=== PATIENT | male | born 1990 | race Two or more races ===

== ENCOUNTER 2018-06-26 15:37 | Emergency (ER) | payer BC, OTHER ==
[~2018-06-26] VITALS: Ht 165.1 cm; Wt 74.8 kg
--- NOTE | 2018-06-26 16:23 | NUR ---
PATIENT TO ED DT UPPER LIP SP BIT BY A DOG. LIP NOTED WITH BLEEDING--VSS
[2018-06-26] MEDS ORDERED: TDAP [DIPH/PERTUSSIS/TET] 0.5 ML VIAL IM ONE ×2 (16:30→16:39)
[2018-06-26] MEDS ORDERED: LIDOCAINE 1% INJ 50 ML MDV IJ ONE (16:30)
[2018-06-26] MEDS ORDERED: ACETAMINOPHEN ES 500 MG TABLET PO ONE (16:30)
[2018-06-26] MEDS ORDERED: ACETAMINOPHEN ES 500 MG TABLET ONE (16:37)
[2018-06-26 17:13] VITALS: BP 130/80
== END 2018-06-26 17:15 | disposition home or self-care (01) ==
LOC: ER 15:54
DX: S01.511A Laceration without foreign body of lip, initial encounter (principal); W54.0XXA Bitten by dog, initial encounter; Y93.89 Activity, other specified; Y92.89 Other specified places as the place of occurrence of the external cause; Y99.8 Other external cause status
CPT/HCPCS: 90715; A4606; A6402; Z7610

== ENCOUNTER 2018-06-28 14:06 | Emergency (ER) | payer BC ==
[~2018-06-28] VITALS: Ht 167.6 cm; Wt 79.4 kg
[2018-06-28 14:06] VITALS: BP 128/74
== END 2018-06-28 15:23 | disposition home or self-care (01) ==
LOC: ER 14:09
DX: S01.511D Laceration without foreign body of lip, subsequent encounter (principal); W54.0XXD Bitten by dog, subsequent encounter
CPT/HCPCS: 99281; A4606; Z7610; Z7502

== ENCOUNTER 2018-07-14 16:38 | Emergency (ER) | payer BC ==
[~2018-07-14] VITALS: Ht 165.1 cm; Wt 76.7 kg
[2018-07-14 16:38] VITALS: BP 117/75
== END 2018-07-14 17:06 | disposition home or self-care (01) ==
LOC: ER 16:40
DX: S01.511D Laceration without foreign body of lip, subsequent encounter (principal); X58.XXXD Exposure to other specified factors, subsequent encounter
CPT/HCPCS: A4606; Z7502; Z7610

== ENCOUNTER 2018-10-28 17:04 | Emergency (ER) | payer BC ==
[~2018-10-28] VITALS: Ht 165.1 cm; Wt 80.3 kg
[2018-10-28 17:08] VITALS: BP 121/79
== END 2018-10-28 18:16 | disposition home or self-care (01) ==
LOC: ER 17:06
DX: J40 Bronchitis, not specified as acute or chronic (principal)
CPT/HCPCS: 71045-TC

== ENCOUNTER 2021-02-01 19:27 | Emergency (ER) | payer BC ==
[~2021-02-01] VITALS: Ht 165.1 cm; Wt 77.1 kg
--- NOTE | 2021-02-01 20:10 | NUR ---
BIBSELF C/O HEADACHE "PRESSURE LIKE" SINCE SUNDAY. WAS SEEN AT [place], TOOK MOTRIN 600MG NO RELIEF, RAPID COVID NEGATIVE TO ER BED 10
[2021-02-01] MEDS ORDERED: ONDANSETRON HCL/PF 4 MG/2 ML VIAL ONE (20:20)
[2021-02-01] MEDS ORDERED: MORPHINE SULFATE INJ 2 MG/ML DISP.SYRIN ONE (20:21)
[2021-02-01] MEDS ORDERED: MORPHINE SULFATE INJ 2 MG/ML DISP.SYRIN IV ONE (20:30)
[2021-02-01] MEDS ORDERED: ONDANSETRON HCL/PF - ER 4 MG/2 ML VIAL IV ONE (20:30)
--- NOTE | 2021-02-01 20:32 | NUR ---
PT BACK FROM CT
[2021-02-01 20:48] LABS: CALCIUM, SERUM 8.4 mg/dL (8.5-10.1); POTASSIUM 3.5 mmol/L (3.5-5.1)
[2021-02-01 20:52] LABS: BASOPHILS # (AUTO) 0.1 /CMM (0.0-0.2); BASOPHILS % (AUTO) 0.7 % (0.0-2.0); HEMATOCRIT 43 % (39-51); HEMOGLOBIN 14.2 g/dL (13.5-17.5); LYMPHOCYTES # (AUTO) 2.6 /CMM (0.8-4.8); LYMPHOCYTES % (AUTO) 25.7 % (20.0-44.0); MEAN CORPUSCULAR HGB CONC 33 g/dl (31.0-36.0); MEAN CORPUSCULAR VOLUME 85 fL (80-96); MONOCYTES # (AUTO) 0.7 /CMM (0.1-1.30); MONOCYTES % (AUTO) 7.1 % (2.0-12.0); NEUTROPHILS # (AUTO) 6.6 /CMM (1.8-8.9); NEUTROPHILS % (AUTO) 65.5 % (43.0-81.0); PLATELET COUNT (AUTO) 220 /CMM (150-450); RED BLOOD CELL COUNT(AUTO) 5.11 MIL/uL (4.5-6.0); WHITE BLOOD COUNT (AUTO) 10.1 K/uL (4.3-11.0)
[2021-02-01] MEDS ORDERED: KETOROLAC TROMETHAMINE 15 MG/ML VIAL ONE (21:29)
[2021-02-01] MEDS ORDERED: METOCLOPRAMIDE HCL 10 MG/2 ML VIAL ONE (21:29)
[2021-02-01] MEDS ORDERED: METOCLOPRAMIDE HCL 10 MG/2 ML VIAL IV ONE (21:30)
[2021-02-01] MEDS ORDERED: KETOROLAC TROMETHAMINE INJ 30 MG/ML VIAL IV ONE (21:30)
[2021-02-01] MEDS ORDERED: BUTA1CAP46 PO (22:17)
[2021-02-01 22:33] VITALS: BP 132/78
--- NOTE | 2021-02-01 22:34 | NUR ---
Patient discharged to home in stable condition. Rx and Written and verbal after care instructions given. Patient verbalizes understanding of instruction. ambulatory with a steady gait
== END 2021-02-01 22:34 | disposition home or self-care (01) ==
LOC: ER 19:30
DX: R51.9 Headache, unspecified (principal); R19.7 Diarrhea, unspecified; Z86.16 Personal history of COVID-19; Z79.899 Other long term (current) drug therapy
CPT/HCPCS: 36415; 70450; 80048; 85025; 96374; 96375; 99284; J1885; J2270; J2405 ×2; J2765

== ENCOUNTER 2021-02-02 11:51 | Outpatient (CLI) | payer BC ==
[~2021-02-02 11:51] MED LIST: BUTA1CAP46 PO
[2021-02-02] MEDS ORDERED: GADOTERATE MEGLUMINE 10 MMOL/20 ML VIAL IV ONE ×2 (11:52)
[2021-02-03] MEDS ORDERED: ONDANSETRON 4 MG TAB.RAPDIS ONE (04:30)
[2021-02-03] MEDS ORDERED: HYDROCODONE/APAP 5/325MG TABLET ONE (04:30)
[2021-02-03] MEDS ORDERED: OXYC-133 PO (05:15)
[2021-02-03] MEDS ORDERED: ONDA4TAB5 PO (05:15)
== END 2021-02-02 23:59 | disposition home or self-care (01) ==
LOC: MRI 11:51
PROVIDERS: ATTEND Family Medicine
DX: J32.2 Chronic ethmoidal sinusitis (principal); J32.3 Chronic sphenoidal sinusitis
CPT/HCPCS: 70546; 70553; A9575; Q0162

== ENCOUNTER 2021-02-03 03:49 | Emergency (ER) | payer BC ==
[~2021-02-03] VITALS: Ht 165.1 cm; Wt 77.1 kg
[2021-02-03] MEDS ORDERED: LORAZEPAM 1 MG TABLET PO ONE (04:30)
[2021-02-03] MEDS ORDERED: HYDROCODONE/APAP 5/325MG TABLET PO ONE (04:30)
[2021-02-03] MEDS ORDERED: HYDROCODONE/APAP 10/325MG TABLET PO ONE (04:30)
[2021-02-03] MEDS ORDERED: ONDANSETRON 4 MG TAB.RAPDIS SL ONE (04:30)
[2021-02-03] MEDS ORDERED: LORAZEPAM 1 MG TABLET ONE (04:31)
[2021-02-03] MEDS ORDERED: OXYC-133 PO (05:15)
[2021-02-03] MEDS ORDERED: ONDA4TAB5 PO (05:15)
[2021-02-03] MEDS ORDERED: HYDROMORPHONE 1 MG/1 ML DISP.SYRIN ONE (05:22)
[2021-02-03] MEDS ORDERED: HYDROMORPHONE 1 MG/1 ML DISP.SYRIN IM ONE (05:30)
--- NOTE | 2021-02-03 08:48 | NUR ---
Patient states he's feeling better. AA/OX4, BREATHING EVEN AND UNLABORED, NO SOB NOTED. NEEDS ATTENDED. Patient discharged to home in stable condition. Written and verbal after care instructions given. Patient verbalizes understanding of instruction.
[2021-02-03 08:52] VITALS: BP 133/76
== END 2021-02-03 08:52 | disposition home or self-care (01) ==
LOC: ER 04:03
DX: R51.9 Headache, unspecified (principal); Z79.899 Other long term (current) drug therapy
CPT/HCPCS: 96372; 99284; J1170; Q0162